=== PATIENT | female | born 1965 | race Caucasian/White ===

== ENCOUNTER → 2021-03-27 | Outpatient (CLI) | payer OTHER | END | disposition home or self-care (01) | LOC: MAMO-SONO 13:15 → EDBD 13:40 → SONOGRAMA 13:40 | PROVIDERS: ATTEND General Practice | DX: N18.30 Chronic kidney disease, stage 3 unspecified (principal); R79.89 Other specified abnormal findings of blood chemistry ==

== ENCOUNTER 2022-12-22 14:58 | Emergency (ER) | payer OTHER ==
[~2022-12-22] VITALS: Ht 182.9 cm; Wt 79.4 kg
== END 2022-12-22 17:29 | disposition home or self-care (01) ==
LOC: ER 14:58
DX: M62.838 Other muscle spasm (principal)

== ENCOUNTER 2022-12-27 17:57 | Emergency (ER) | payer OTHER ==
[~2022-12-27] VITALS: Ht 182.9 cm; Wt 74.8 kg
== END 2022-12-27 21:22 | disposition home or self-care (01) ==
LOC: ER 17:57
DX: M54.2 Cervicalgia (principal)